=== PATIENT | male | born 1965 | race Caucasian/White ===

== ENCOUNTER 2019-09-24 12:11 | Emergency (ER) | payer BC ==
[2019-09-24] MEDS ORDERED: Lidocaine 2% w/Epinephrine 1:200K 20 ML VIAL ONE (13:01)
[2019-09-24] MEDS ORDERED: Adacel (T-DAP) 0.5 ML SYRINGE ONE (13:13)
[2019-09-24] MEDS ORDERED: Bacitracin 1 PK ONE (13:46)
[2019-09-24] MEDS ORDERED: Triple Antibiotic Oint 1 GM Packet ONE (13:48)
[2019-09-24 22:45] LABS: HBSAg Index 0.18 S/CO (0-0.99); HIV (1/2) Antibody/Antigen Non-Reactive (NonReactive); HIV 1/2 INDEX 0.23 S/CO (<1.00); Hep A IgM AB Non-Reactive (NonReactive); Hep A IgM S/CO 0.12 S/CO (0-0.79); Hep B Core Total Ab Non-Reactive (NonReactive); Hep B Core Total Index 0.07 S/CO (0-0.79); Hep B Surf Ag Non-Reactive S/CO (NonReactive); Hep C IgG Ab Non-Reactive (NonReactive)
[2019-09-24 22:53] LABS: HBSAB Concentration 63.84 mIU/mL; Hep B Surf AB Reactive (NonReactive)
== END 2019-09-24 14:38 | disposition home or self-care (01) ==
LOC: MADERS 12:11
DX: S61.412A Laceration without foreign body of left hand, initial encounter (principal); I10 Essential (primary) hypertension; Z23 Encounter for immunization; Z79.899 Other long term (current) drug therapy; W26.0XXA Contact with knife, initial encounter
CPT/HCPCS: 12001; 36415; 86704; 86706; 86709; 86803; 87340; 87389; 90471; 90715